=== PATIENT | male | born 1985 | race Caucasian/White ===

== ENCOUNTER 2023-07-04 20:02 | Inpatient (IN) ==
--- OUTSIDE RECORDS SUMMARY | 2023-07-04 20:09 | External Medical Summary | Continuity of Care Document ---
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 All questions were answered to the patient s satisfaction. A timeout process was then performed, during which the patient s name, date, and surgical site were confirmed. The surgical site was prepped with alcohol and anesthetized using0.2 mL of lidocainewithepinephrine. The lesion was then removed via tangential shave at the base using aDermabladeand sent for pathology. Hemostasis was achieved with aluminum chloride. The patient was educated on wound healing and scar formation and counseled on proper wound care and signs of infection. The patient left the clinic ingood condition.Advised we will contact him with a phone call or a letter. If he doesn't hear from us in 2 weeks please call the office for results. Pictures in chart. 3.Heliotrope eyelid rash Possible, faint, on upper eyelids for a few months. He is following with neurology for this at this time. 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 After discussing with Dr. Lyles, we will order DEBORAH profile and recommend he follow up with rheum as well. Advised patient to call with any problems, questions, or concerns. States understanding. Patient was seen independently,Dr Alanis for immediate collaboration as needed during this visit. Immunizations Given and Recorded Vaccine Date Status Refusal Reason influenza virus vaccine, inactivated 04/22/23 Give n influenza virus vaccine, inactivated 03/16/21 Fran rded influenza virus vaccine, inactivated 04/24/20 Fran rded influenza virus vaccine, inactivated 05/10/19 Fran rded influenza virus vaccine, inactivated 07/05/14 Fran rded influenza virus vaccine, inactivated 05/22/10 Fran rded tetanus/diphtheria/pertuss, acel (Tdap) 05/22/21 G iven SARS-CoV-2 (COVID-19) mRNA-1273 vaccine 1 09/28/20 Recorded SARS-CoV-2 (COVID-19) mRNA-1273 vaccine 2 08/29/20 Recorded SARS-CoV-2 (COVID-19) mRNA-1273 vaccine 3 08/14/20 Recorded 1Result Comment: 2021-04-18: Historical information-source unspecified 2Result Comment: 2021-04-18: Historical information-source unspecified 3Result Comment: 2021-04-18: Historical information-source unspecified Medications amphetamine-dextroamphetamine 20 mg oral tablet Start: 04/22/23 11:58:00 EST, 1 tab, PO, bid, Disp# 60 tab, Refills: 0, Pharmacy: [email or web address] Start Date: 04/22/23 Stop Date: 05/22/23 Status: Ordered Ativan 0.5 mg oral tablet Start: 07/03/23 17:23:00 EST, 1 tab, PO, q8h, Disp# 9 tab, X 3 day, use sparingly, PRN: as needed for anxiety, Stop: 07/06/23 17:23:00 EST, [facility] Start Date: 07/03/23 Stop Date: 07/06/23 Status: Ordered ibuprofen 100 mg oral tablet Start: 11/08/22 13:03:00 EDT, 2 tab, PO, q6h, PRN: as needed for headache Start Date: 11/08/22 Status: Ordered ipratropium 21 mcg/inh (0.03%) nasal spray Start: 04/22/23 11:28:00 EST, 2 spray, each nostril, tid, Disp# 1 each, Refills: 2, PRN: as needed for allergy symptoms, [facility] Start Date: 04/22/23 Stop Date: 07/21/23 Status: Ordered propranolol Start: 06/25/23 10:51:00 EST, 10 mg =, PO, Daily, 3 tabspo daily pRN anxiety Start Date: 06/25/23 Status: Ordered Tylenol Start: 06/25/23 10:47:00 EST, PO, PRN Start Date: 06/25/23 Status: Ordered Vitamin B Complex Start: 06/25/23 10:47:00 EST, PO, Daily Start Date: 06/25/23 Status: Ordered Mental Status 07/01/23 Barriers to Learning one year None evide nt Mandatory Health Literacy Documentation Yes Health Literacy Communication Barriers N ever Primary Language Danish Problem List Condition Confirmation Course Effective Dates Status H ealth Status Informant Anxiety Confirmed Active Weakness Confirmed Active ADHD (attention deficit hyperactivity disorder) Confirmed Active Carpal tunnel syndrome Confirmed Active Heliotrope eyelid rash Confirmed Active Facial rash Confirmed Active Fibromyalgia Confirmed Active History of avascular necrosis of capital femoral epiphysis Confirmed Active Wart on thumb Confirmed Active Bilateral hip pain Confirmed Active Left hip pain Confirmed Active Dermatitis, seborrheic Confirmed Active Diagnosis Diagnosis Type Effective Dates Health Status Clinical Service Informant Wart on thumb Discharge Diagnosis 07/01/23 Orlando-Danlos disease Discharge Diagnosis 07/01/23 Heliotrope eyelid rash Discharge Diagnosis 07/01/23 Procedures Procedure Date Related Diagnosis Body Site Status Shave biopsy of skin 07/01/23 Comp leted Chest x-ray 1 05/27/23 Completed Transposition of ulnar nerve at elbow 2 11/2022 Completed MRI of cervical spine 3 03/06/22 C ompleted MRI of head 4 03/06/22 Completed Plain X-ray of right first toe 5 02/07/22 Completed Chest x-ray 6 09/03/21 Completed Doppler ultrasound of kidney 7 04/01/21 Completed Plain X-ray of lumbar spine 8 04/01/21 Completed X-ray of thoracic spine 9 04/01/21 Completed KUB X-ray 10 03/30/21 Completed Diagnostic colonoscopy 11 03/27/21 Completed Upper GI (gastrointestinal) endoscopy 12, 13 03/27/[address] of abdomen and pelvis wit h contrast 14 02/27/[address] of cervical spine 15 02/27/21 C ompleted Ultrasound 16 02/01/21 Completed X-ray of left knee 17 08/15/20 Com pleted Hip arthroplasty 18 04/16/20 Compl eted MRI of wrist 19 03/16/20 Completed X-ray of fingers 20 02/08/20 Compl eted MRI of Left Hip w/o contrast. 21 12/15/19 Completed MRI of spine 22 12/15/19 Completed Stress echocardiography usin g dobutamine 23 10/12/19 Completed Chest x-ray 24 10/15/18 Completed Left hip 2012 Completed Orif of femoral neck FX 06/10/09 C ompleted Wrist [address] [place] [address] Impression: 1. No acute cardiopulmonary findings 2right 3Impression: 1. No abnormal cord signal changes or enhancement 2. No central canal or neural foraminal stenosis. 4Impresssion: No definite abnormal periventricular white-matter lesion identified to suggest demyelinating disease. Unremarable MRI brain exam. 5impressure: Fracture at the base of the first proximal phalanx as above see scanned report 6No acute process. 7Unremarkable renal ultrasound. No hydronephrosis 8No acute lumbar spine fracture or subluxation 9No acute thoracic spine fracture or subluxation 10Moderate colonic fecal retention 11Preparation of the colon was fair The entire examined colon is normal. Biopsied Non-bleeding internal hemorrhoids 12Normal esophagus Gastritis. Biopsied. Flattened mucosa was found in the duodenum, suspicious for celiac disease. Biopsied 13A. Duodenum, biopsy: No diagnostic abnormality B. Stomach, biopsy: Reactive gastropathy C. Colon, right, biopsy: No diagnostic abnormality D. Colon, left, biopsy: No diagnostic abnormality 14No acute traumatic findings within the abdomen or pelvis 151. No acute cervical spine fracture or subluxation 2. Mild T1 wedge deformity may be developmental or represent an age- indeterminate fracture 16impression: no sonographic abnormalities on this study. 17Unremarkable left knee radiographs 18Left 19Impression: 1. full thickeness tear of the thumb CMC joint capsule along its radial aspect, likely including the dorsal radial ligament. 2. No scaphoid fracture. 20Impression: No acute osseois abnormality to the Right thumb. 21Impression: 1. severe osteoarthrisis of the left hip, with a probable compnenet of underlying avascular necrosis as well as findings of prior surgical instrumentation. 2. Degenerative tearing of the left acetabular labrum. 3. Asymmetric fatty atrophy of the inferomedial left gluteus yolis muscle. This could be postoperative, posttraumatic or related to chronic denervation. 22Impression: 1. transitional lumbar spine anatomy. 4 [id number] lumbar type vertebral bodies are again noted and corrobrated counting down from c2 on localizer sequence. 12 rib-bearing thoracic type vertebral bodies were present on 2014 thoracic spine x-ray. Lumbosacral transitional vertebra desig nated as L5 for this study. L5 sacralization, with fully formed L5-S1 disc and right L5 transverse process widening. 2. Nerve root contact at L2-L3, L3-L4, and L4-L5, correlation with dermatomal symptom level recommended. 3. Multilevel mild neural foraminal narrowing. 4. No lumbar spinal canal stenosis. 5. Convex right thoracolumbar scoliosis, measuring 10 degrees by Corona method between superior T5 and inferior L4 endplates. Convex left cervicothoracic curvature/scoliosis, imcompletetly evlauated onlocalizer seqences. Weightbearing scoliosis x-ray could further assess. 6. L1 vertebral body height loss, stable dating back to december 2015. 23The stress echo is negative for inducible ischemia The examination is adequate to evaluate the referred indication The qualitative LV ejection fraction is 60-64% (normal) The left ventricular wall motion is normal The left ventricular ejection fraction increases normally with stress The right ventricular systolic function is qualitatively normal The left atrium is normal sized The right atrial size is normal No significant valvular disease is present 24No acute cardiopulmonary findings 2012 Results Laboratory List Name Date DEBORAH with Reflex titer (DEBORAH W REFLEX TITE R) 07/01/23 Most recent to oldest [Reference Range]: 1 DEBORAH, by IFA [L80N] POSITIVE *Abnormal* (07/01/23 12:47 PM) DEBORAH Titer/Pattern (1) 1:160 Speckled *Unknown* (07/01/23 12:47 PM) Social History Social History Type Response Smoking Status Never smoked cigaret gertrude Sex Male 1Vapes nicotine, but doesn't smoke cigarettes Dermatology Outpatient Note * MD Rafal, Jasmin Davis: MODIFY MD Lyles Sara B: MODIFY, MODIFY Event Display: Dermatology Outpt Note Authored Date: Chief Complaint itching on hands. History of Present Illness 38 year old white male. right thumb lesion. seems to get bigger and smaller for the past year. has had other ones on hands come and go also. Would really like to know what it is. They can bleed a lotif cut or scratched. Violaceous upper eyelids for several months. Saw Dr Mcclure 05/19/2023 and his note stated He is having some muscle weakness but work-up by neurology and rheumatology in the past have not shown any specific diagnosis. EMGs have been normal. He is outside during the summertime but reports no sun sensitivity. He is concerned about autoimmune disease. [1] He is seeing Neurology at this time. 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 Physical Exam Well developed, well nourished male. No acute distress. Right thumb 0.5cm pink papule Has a few small other pink verrucoid lesions on fingers. Faint violaceous upper eyelids. Assessment/Plan 1.Wart on thumb Shave biopsy:After thorough discussion of the risks, benefits, and alternatives to the procedure,verbal consent was obtained. All questions were answered to the patients satisfaction. A timeoutprocess was then performed, during which the patients name, date, and surgical site were confirmed. The surgical site was prepped with alcohol and anesthetized using0.2 mL of lidocainewithepinephrine. The lesion was then removed via tangential shave at the base using aDermabladeand sent for pathology. Hemostasis was achieved with aluminum chloride. The patient waseducated on wound healing and scar formation and counseled on proper wound care and signs of infection. The patient left the clinic ingood condition.Advised we will contact him with a phone call or a letter. If he doesn't hear from us in 2 weeks please call the office for results. Pictures in chart. 3.Heliotrope eyelid rash Possible, faint, on upper eyelids for a few months. He is following with neurology for this at this time. 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 After discussing with Dr. Lyles, we will order DEBORAH profile and recommend he follow up with rheum as well. Advised patient to call with any problems, questions, or concerns. States understanding. Patient was seenindependently,Dr Burtilapete for immediate collaboration as needed during this visit. Problem List/Past Medical History Ongoing ADHD (attention deficit hyperactivity disorder) Anxiety Bilateral hip pain Carpal tunnel syndrome Dermatitis, seborrheic Facial rash Fibromyalgia Heliotrope eyelid rash History of avascular necrosis of capital femoral epiphysis Left hip pain Wart on thumb Weakness Historical Delusions of parasitosis Orlando-Danlos disease Femoral neck fracture Procedure/Surgical History Chest x-ray (05/27/2023)Transposition of ulnar nerve at elbow (11/2022)MRI of cervical spine (03/06/2022)MRI of head (03/06/2022)Plain X-ray of right first toe (02/07/2022)Chest x-ray (09/03/2021)X-ray of thoracic spine (04/01/2021)Doppler ultrasound of kidney (04/01/2021)Plain X-ray of lumbar spine (04/01/2021)KUB X-ray (03/30/2021)Upper GI (gastrointestinal) endoscopy (03/27/2021)Diagnostic colonoscopy (03/27/2021)CT of abdomen and pelvis with contrast (0 02/27/2021)CT of cervical spine (02/27/2021)Ultrasound (02/01/2021)X-ray of left knee (08/15/2020)Hip arthroplasty (04/16/2020)MRI of wrist (03/16/2020)X-ray of fingers (02/08/2020)MRI of spine (12/15/2019)MRI of Left Hip w/o contrast. (12/15/2019)Stress echocardiography using dobutamine (10/12/2019)Chest x-ray (10/15/2018)Left hip (2012)Orif of femoral neck FX (06/10/2009)Wrist Medications acetaminophen(Tylenol), PO amphetamine-dextroamphetamine(amphetamine-dextroamphetamine 20 mg oral tablet), 20 mg= 1 tab, PO, bid ibuprofen(ibuprofen 100 mg oral tablet), 200 mg= 2 tab, PO, q6h, PRN ipratropium nasal(ipratropium 21 mcg/inh (0.03%) nasal spray), 2 spray, each nostril, tid, PRN, 2 refills multivitamin(Vitamin B Complex), PO, Daily propranolol, 10 mg, PO, Daily Allergies Cymbaltableeding codeineItching Social History Smoking Status Never smoked cigarettes Alcohol Use:Current Type:Beer Frequency:1-2 times per month 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 No tattoos and has not been incarcerated. Has had negativeHIV and hepatitis C screening in the past. Sexual Sexually active:Yes Current partners:1 Self described orientation:Straight or heterosexual Uses condoms:Yes Substance Abuse - Denies Substance Abuse Tobacco Use:Never smoker - Comments: Vapes nicotine, but doesn't smoke cigarettes Family History Amyloidosis: PGF. Bladder cancer: Father. Bronchiectasis: PGF. Diabetes mellitus: Father and PGM. Heart disease: Father. Parkinson disease: MGM. Renal failure syndrome: PGF. Type II diabetes mellitus: Father. Health Status Family Member(s) Immunizations Vaccine Date Status influenza virus vaccine, inactivated 04/22/2023 Given tetanus/diphtheria/pertuss, acel (Tdap) 05/22/2021 Given influenza virus vaccine, inactivated 03/2021 Recorded SARS-CoV-2 (COVID-19) mRNA-1273 vaccine 09/28/2020 Recorded Comments : 2021-04-18: Historical information-source unspecified SARS-CoV-2 (COVID-19) mRNA-1273 vaccine 08/29/2020 Recorded Comments : 2021-04-18: Historical information-source unspecified SARS-CoV-2 (COVID-19) mRNA-1273 vaccine 08/14/2020 Recorded Comments : 2021-04-18: Historical information-source unspecified influenza virus vaccine, inactivated 04/24/2020 Recorded influenza virus vaccine, inactivated 05/10/2019 Recorded influenza virus vaccine, inactivated 07/05/2014 Recorded influenza virus vaccine, inactivated 05/22/2010 Recorded Recommendations Health Maintenance Pending(in the next year) Due Adult COVID-19 Vaccination due07/01/23Unknown Frequency Adult Social Determinants of Health Screening due07/01/23Unknown Frequency Due In Future Adult Influenza Vaccine not due until12/14/23and every 1year Body Mass Index not due until06/25/24and every 366day Satisfied(in the past 1 year) Satisfied Adult Influenza Vaccine on04/22/23.Satisfied by MIGUEL Mg, Jamey Guillermo 2023-07-01 09:55:01 2023-07-01 09:55:07 [1].Outpt Note; MD Kami, Po Bermudez 05/19/2023 13:24 EST Electronic Signature on File Electronically Reviewed/Signed by: Janel Davenport PA-C Author Signature Dt/Tm:07/01/2023 10:10 AM Department of Dermatology Electronically Reviewed/Signed by: Jasmin Lyles MD Cosigner Signature Dt/Tm: 07/01/2023 11:04 AM Department of Dermatology [facility] Patient Care team information Care Team Personnel Name: DO Starr Vinay Position: Resident Member Role: Primary Care Provider Address: Address: [address] [place] [address] [place] Care Team Related Persons Name: DEELMIRA JOHN Name: CAROL JOHN Address: home No Address Provided [place]
--- NOTE | 2023-07-04 20:58 | Emergency Department Note ---
Impression & Plan Weakness, Tachycardia, Chest pain ED Provider Note NAME: DALY JOHN AGE: 38 SEX: M : 1985 ARRIVES VIA: Walk-In INFORMANT: Patient, ED PROVIDER(S): Jose G Berrios MD CHIEF COMPLAINT: Weakness, fatigue MEDICAL DECISION MAKING: Patient's blood work shows a white count of 11 with a normal H&H and platelet count. Kidney function is unremarkable with normal electrolytes with exception of mild hyponatremia at 135. Patient 130 nonfasting and not DKA. Urinalysis negative. The patient did drink a full gallon of tea here. Patient was complaining of chest pains the patient did have EKGs completed along with a troponin. The patient's heart rate is waxed and waned anywhere from the 70s to 150s. Patient's troponin is negative. 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 Per review of literature dermatomyositis combined with polymyositis could cause muscle weakness and fatigue. Given this concern and the fact the patient feels as though he cannot get up and out of bed to ambulate very well do not think it unreasonable for hospitalist admission and further discussion and treatment. I did speak to the on-call hospital service Dr. Rg and the patient was admitted to the medicine service. Chest x-ray and CT head negative. Discussion w/ other healthcare providers: None Prior /Outside records reviewed: I reviewed a rheumatology note from [facility] from September 21, 2021 the Patient Was Seen Due To Concern for Musculoskeletal Pain. Patient Reported Been Seen at That Time Due To Concern for Myalgias Radicular Symptoms and Paresthesias. Per Review of This Notes Was Discussed the Patient's Evaluation Does Not Suggest an Active Systemic Inflammatory Arthropathy or Myopathy or Autoimmune Disease. Patient Has Negative DEBORAH Profile Rheumatoid Factor Less Than 10 of 1422 HCV Negative. Was Reported the Patient Has Multiple Features of Fibromyalgia Disorder. Differential diagnosis: Infection, dehydration, metabolic abnormality, hypo/hyperglycemia, electrolyte imbalance, anemia, UTI, pneumonia, thyroid dysfunction among others were considered. Diagnostics, as interpreted by me: ECG: Sinus rhythm, rate of 67, normal intervals, normal axis significant motion artifact noted. Repeat EKG interpreted myself Normal sinus rhythm, rate of 78, normal intervals, normal axis II inversions anteriorly. Cardiac monitoring: An order was placed for continuous cardiac monitoring. The monitor shows a rate of 132 with tachycardic and regular rhythm. Patient was placed on pulse oximetry Medical decision rules: None Imaging studies: I informally interpreted the patient's CT head which does not show obvious ICH with formal report to follow. I informally interpreted the patient's chest x-ray which does not show obvious pneumonia or pneumothorax with formal report to follow. HPI: Patient presents due to concern for weakness and fatigue. The patient states that he has suffered from this for the last several years but states that it seems to be worse in the last week. Patient denies any shortness of breath. Patient denies any trauma but states that he feels as though he cannot ambulate very well and since that he has weakness in his legs and arms. Patient states that he was in a positive at a prior time but unsure as to what he was positive for with regard to any sort of autoimmune disease. Patient denies any history of Lyme's or recent tick bites. No recent travel. Patient denies any prior history of stroke mini stroke procedure. Patient believes that has been getting enough to eat and drink. Patient states that he feels as though his weakness was from the knee down and from the elbow down bilaterally but now seems to be more proximal. PAST MEDICAL HISTORY: See Below PAST SURGICAL HISTORY: See Below SOCIAL HISTORY: See Below HOME MEDICATIONS: See Below ALLERGIES: See Below VITALS: See Below PHYSICAL EXAMINATION: GENERAL: NAD, non-toxic. EYE EXAM: Normal conjunctiva. PERRL, no anisocoria and EOM's grossly intact w/o pain. OROPHARYNX: Moist mucus membranes, grossly normal dentition. NECK: Supple, no nuchal rigidity, no adenopathy, non-tender. No signs of meningismus. FROM of the neck with good chin to chest and neck extension. No stridor. LUNGS: Clear to auscultation. Normal chest wall mechanics. HEART: NSR, no MRG. ABDOMEN: Abdomen soft, non-tender, no masses, no rebound or guarding. BACK: No CVA TTP. SKIN: No rashes and no bruising. UPPER EXTREMITIES: Upper extremities are grossly normal. LOWER EXTREMITIES: Grossly normal, no edema. NEURO EXAM: A&O x3, cranial nerves II-XII grossly intact, normal speech, moves all 4 extremities. No sensory deficits Past Med/Surg History Medical History Fibromyalgia Depression Medical cannabis use Degenerative disc disease Chronic back pain AVN of femur hx s/p a skiing accident ADHD Femur fracture hx Surgical History History of surgery femoral neck wrist S/P debridement left wrist S/P total left hip arthroplasty S/P hardware removal Left hip History of hip surgery ORIF left hip Family History Grandmother (Maternal) Sjogrens syndrome Grandfather (Maternal) Amyloid disease Father Dyslipidemia Bladder cancer Diabetes Heart disease Cancer bladder cancer Adverse effect of anesthesia blind Sister Fibromyalgia Asthma Allergies Family/Other Hypertension paternal relatives Other No family history of bleeding disorder Social History Smoking Status: Never smoker Tobacco Type: E-cigarettes / Vaping Second Hand Exposure: No; Do You Dip or Chew Tobacco: No; Hx Alcohol Use: No Hx Substance Use: Yes Substance Use Type Other:: medical marijuana Preferred Language: Hungarian Communication Ability: Effective Customer Operations Associate Required: No Beliefs That Will Affect Care: None marital status: Single Current Living Situation: Alone current occupational status: employed current occupation: [employer] Other Information That Helps Us Care for You: No Feels Safe at Home: Yes Safety Concerns: Feels Safe At This Time Assistive Devices: Glasses and Walker Allergies Allergies Allergy/AdvReac Type Severity Reaction Status Date / Time Pork/Porcine Containing AdvReac Verified 07/06/23 11:25 Products shellfish derived AdvReac Verified 07/06/23 11:25 Home Meds Home Medications Medication Instructions Recorded Confirmed dextroamphetamine-amphetamine 20 20 mg PO BID PRN NEEDED PER PT. 01/27/21 07/04/23 mg tablet (Adderall) albuterol sulfate 90 mcg/actuation 2 puff inhalation Q4H PRN Wheezing 07/04/23 07/04/23 aerosol inhaler baclofen 10 mg tablet 10 mg PO TID PRN MUSCLE SPASMS 07/04/23 07/04/23 gabapentin 100 mg capsule 100 mg PO BID 07/04/23 07/04/23 lorazepam 0.5 mg tablet 0.5 mg PO Q8H PRN Anxiety 07/04/23 07/04/23 multivitamin 1 tab PO DAILY 07/04/23 07/04/23 vitamin B complex 1 tab PO DAILY 07/04/23 07/04/23 Results & Data (ED) Vital Signs Vital Signs - 24 hr 07/04/23 20:07 07/04/23 21:15 Temperature 36 C L Temperature Source Temporal Artery Scan Pulse Rate 99 H 73 Respiratory Rate 18 Respiratory Effort / Characteristics Non-Labored Respiratory Depth Normal Blood Pressure 123/86 Blood Pressure Mean 98 Pulse Oximetry 95 Oxygen Delivery Method Room Air Sepsis Recent Fever Within 48 Hours No Sepsis New/Unexplained Change in Mental Status No Sepsis Action Taken by Nursing No Action Required Home Medications Current Medication List: was personally reviewed by me Laboratory Data Attestation: I reviewed the patient's lab results. 07/06/23 07:59 07/06/23 07:59 Lab Results 07/04/23 07/04/23 07/04/23 Range/Units 21:20 21:28 23:00 WBC 11.24 H (4.8-10.8) K/ul RBC 5.22 (4.70-6.10) M/uL Hgb 15.6 (14.0-18.0) g/dl Hct 46.4 (42.0-52.0) % MCV 88.9 (80.0-100.0) fL MCH 29.9 (25.0-34.0) pg MCHC 33.6 (32.0-36.0) g/dL RDW Std Deviation 41.7 (36.4-46.3) fL RDW Coeff of Shar 12.8 (11.5-14.5) % Plt Count 363 (130-400) K/uL MPV 9.2 L (9.4-12.4) fL Immature Gran % (Auto) 0.7 % Neut % (Auto) 72.7 % Lymph % (Auto) 16.4 % [place] % (Auto) 8.4 % Eos % (Auto) 1.3 % Baso % (Auto) 0.5 % Neut # (Auto) 8.17 H (1.40-6.50) K/uL Lymph # (Auto) 1.84 (1.20-3.40) K/uL [place] # (Auto) 0.94 H (0.11-0.59) K/uL Eos # (Auto) 0.15 (0.00-0.50) K/uL Baso # (Auto) 0.06 (0.00-0.20) K/uL Immature Gran # (Auto) 0.08 (0.01-0.20) K/uL APTT 29 (21-31) Seconds PTT Ratio 1.0 Sodium 135 L (136-145) mmol/L Potassium 3.6 (3.5-5.1) mmol/L Chloride 100 (98-107) mmol/L Carbon Dioxide 27 (21-32) mmol/L Anion Gap 8 (3-11) BUN 16 (6-23) mg/dl Creatinine 1.02 (0.6-1.4) mg/dl Est Cr Clr Drug Dosing 116.4 ml/min Est GFR ( Amer) 109.1 ml/min Est GFR (Non-Af Amer) 94.1 ml/min BUN/Creatinine Ratio 15.7 (10-20) Glucose 130 H (70-99(Fasting)) mg/dl Calcium 9.2 (8.6-10.3) mg/dl Phosphorus 3.3 (2.5-4.9) mg/dl Magnesium 2.1 (1.7-2.4) mg/dl Total Bilirubin 1.1 H (0.2-1.0) mg/dl AST 15 (13-39) U/L ALT 24 (7-52) U/L Alkaline Phosphatase 81 (34-104) U/L Total Creatine Kinase 40 (30-223) U/L Total Protein 7.1 (6.0-8.3) gm/dl Albumin 4.7 (3.4-5.0) gm/dl Globulin 2.4 L (2.5-4.0) gm/dl Albumin/Globulin Ratio 2.0 (0.9-2) 25-OH Vitamin D Total 25.4 L (30-100) ng/ml Urine Color Yellow Urine Appearance Clear (Clear) Urine pH 6.5 (4.5-7.5) Ur Specific [place] 1.008 (1.000-1.030) Urine Protein Negative (Negative) Urine Glucose (UA) Negative (Negative) Urine Ketones Negative (Negative) Urine Blood Negative (Negative) Urine Nitrite Negative (Negative) Urine Bilirubin Negative (Negative) Urine Urobilinogen Negative (Negative) Ur Leukocyte Esterase Negative (Negative) Lyme Disease IgG Ab Negative (Negative) Lyme Disease IgM Ab Negative (Negative) SARS-CoV-2 (PCR) NEGATIVE (Negative) Influenza Type A (PCR) Negative (Neg) Influenza Type B (PCR) Negative (Neg) RSV (RT-PCR) Negative (Neg) Administered Medications Acetaminophen (Acetaminophen 325 Mg Tab) 650 mg PO Q4H PRN PRN Reason: pain/fever Stop: 08/04/23 03:13 Last Admin: 07/05/23 19:32 Dose: 650 mg Documented By: ENA Gabapentin (Gabapentin 100 Mg Cap) 100 mg PO BID ALYSSA Stop: 08/04/23 20:59 Last Admin: 07/06/23 07:42 Dose: 100 mg Documented By: Admin: 07/05/23 21:23 Dose: 100 mg Documented By: ENA Discontinued Medications Sodium Chloride (Nss) 1,000 mls @ 999 mls/hr IV .Q1H1M ONE Stop: 07/04/23 22:25 Last Admin: 07/04/23 23:17 Dose: Not Given Documented By: SJ Sodium Chloride (Nss) 1,000 mls @ 999 mls/hr IV .Q1H1M ONE Stop: 07/05/23 01:04 Last Infusion: 07/05/23 01:24 Dose: Infused Documented By: Admin: 07/05/23 00:12 Dose: 999 mls/hr Documented By: SJ Ketorolac Tromethamine (Ketorolac Tromethamine 15 Mg/Ml Vial) 10 mg IV NOW ONE Stop: 07/05/23 00:05 Last Admin: 07/05/23 00:11 Dose: 10 mg Documented By: SJ Lorazepam (Lorazepam 1 Mg/1 Ml Syr Ed Inj Use) 1 mg IV ONE STA Stop: 07/05/23 00:06 Last Admin: 07/05/23 00:12 Dose: 1 mg Documented By: SJ Imaging Data Radiologist's Impression: Chest X-Ray 07/04/23 20:11 XR chest 1V portable HISTORY: weakness COMPARISON: Chest 05/27/2023. FINDINGS: The lungs are clear. Cardiac silhouette is normal in size. No pleural effusions. No pneumothorax. IMPRESSION: No acute process. ACT 112: Negative or not required by law. Electronically signed by: Manan Goldman M.D. 07/05/2023 8:[address] 07/04/23 21:25 Exam(s): CT HEAD Without Contrast EXAM: CT Head Without Intravenous Contrast CLINICAL HISTORY: Reason for exam: weakness, fatigue. TECHNIQUE: Axial computed tomography images of the head/brain without intravenous contrast. CTDI is 37.22 mGy and DLP is 702.46 mGy-cm. Automated exposure control was utilized for the study. A dose lowering technique was utilized adhering to the principles of ALARA. COMPARISON: No relevant prior studies available. FINDINGS: Brain: Unremarkable. No hemorrhage. No significant white matter disease. No edema. Ventricles: Unremarkable. No ventriculomegaly. Bones/joints: Unremarkable. No acute fracture. Soft tissues: Unremarkable. Sinuses: Unremarkable as visualized. No acute sinusitis. Mastoid air cells: Unremarkable as visualized. No mastoid effusion. IMPRESSION: No evidence of acute intracranial pathology. Electronically signed by: Geeta Carvajal MD 07/05/23 00:58 AM Discharge Plan Visit Data Chief Complaint: Weakness Stated Complaint: MODERATE TO SEVERE WEAKNESS, ARMS/LEGS/NECK/THROAT ED Provider: Jose G Berrios Discharge Problem: Weakness, Tachycardia, Chest pain Patient Disposition: Admitted As Inpatient Discharge Instructions Interventions: ED Discharge Assessment Last Done: 07/05/23 02:50 Discharge Problem: Chest pain Qualifiers: Chest pain type: unspecified Qualified Code(s): R07.9 - Chest pain, unspecified
[2023-07-04] MEDS ORDERED: SODIUM CHLORIDE 0.9% 1,000 ML IV ONE (21:25)
[2023-07-04 22:20] LABS: Basophils # (auto) 0.06 K/uL (0.00-0.20); Basophils % (auto) 0.5 %; Eosinophils # (auto) 0.15 K/uL (0.00-0.50); Eosinophils % (auto) 1.3 %; Hematocrit (blood only) 46.4 % (42.0-52.0); Hemoglobin 15.6 g/dl (14.0-18.0); Immature Granulocytes # (auto) 0.08 K/uL (0.01-0.20); Immature Granulocytes % (auto) 0.7 %; Lymphocytes # (auto) 1.84 K/uL (1.20-3.40); Lymphocytes % (auto) 16.4 %; Mean Corpuscular Hemoglobin 29.9 pg (25.0-34.0); Mean Corpuscular Hgb Conc 33.6 g/dL (32.0-36.0); Mean Corpuscular Volume 88.9 fL (80.0-100.0); Mean Platelet Volume 9.2 fL (9.4-12.4); Monocytes # (auto) 0.94 K/uL (0.11-0.59); Monocytes % (auto) 8.4 %; Neutrophils # (auto) 8.17 K/uL (1.40-6.50); Neutrophils % (auto) 72.7 %; Platelet Count 363 K/uL (130-400); RDW Coefficient of Variation 12.8 % (11.5-14.5); RDW Standard Deviation 41.7 fL (36.4-46.3); Red Blood Count 5.22 M/uL (4.70-6.10); White Blood Count 11.24 K/ul (4.8-10.8)
[2023-07-04 22:35] LABS: Albumin Level 4.7 gm/dl (3.4-5.0); BUN Creatinine Ratio 15.7 (10-20); Bilirubin,Total 1.1 mg/dl (0.2-1.0); Calcium 9.2 mg/dl (8.6-10.3); Creatinine Clr Calc Pharmacy 116.4 ml/min; Est GFR (African American) 109.1 ml/min; Est GFR (Non-African American) 94.1 ml/min; Globulin 2.4 gm/dl (2.5-4.0); Magnesium 2.1 mg/dl (1.7-2.4); Phosphorus 3.3 mg/dl (2.5-4.9); Potassium 3.6 mmol/L (3.5-5.1); Total Protein 7.1 gm/dl (6.0-8.3)
[2023-07-04 22:44] LABS: Partial Thromboplastin Time 29 Seconds (21-31)
[2023-07-04 22:55] LABS: Influenza A virus by PCR Negative (Neg); Influenza B virus by PCR Negative (Neg); RSV by PCR Negative (Neg); SARS CoV2 RNA(COVID-19) Ceph NEGATIVE (Negative)
[2023-07-04 22:59] LABS: Lyme Ab IgG w/WB Rflx Negative (Negative); Lyme Ab IgM w/WB Rflx Negative (Negative)
[2023-07-04 23:33] LABS: Appearance Urine Clear (Clear); Bilirubin Urine Negative (Negative); Blood Urine Negative (Negative); Color Urine Yellow; Glucose Urine UA Negative (Negative); Ketones Urine Negative (Negative); Leukocyte Esterase Urine Negative (Negative); Nitrite Urine Negative (Negative); Protein Urine Negative (Negative); Specific Gravity Urine 1.008 (1.000-1.030); Urobilinogen Urine Negative (Negative); pH Urine 6.5 (4.5-7.5)
[2023-07-05] MEDS ORDERED: KETOROLAC TROMETHAMINE 15 MG/ML VIAL IV ONE (00:04)
[2023-07-05] MEDS ORDERED: SODIUM CHLORIDE 0.9% 1,000 ML IV ONE (00:04)
[2023-07-05] MEDS ORDERED: LORazepam 1 MG/1 ML SYR ED Inj Use IV STA (00:05)
--- NOTE | 2023-07-05 00:59 | CT Scan Report ---
Exam(s): CT HEAD Without Contrast EXAM: CT Head Without Intravenous Contrast CLINICAL HISTORY: Reason for exam: weakness, fatigue. TECHNIQUE: Axial computed tomography images of the head/brain without intravenous contrast. CTDI is 37.22 mGy and DLP is 702.46 mGy-cm. Automated exposure control was utilized for the study. A dose lowering technique was utilized adhering to the principles of ALARA. COMPARISON: No relevant prior studies available. FINDINGS: Brain: Unremarkable. No hemorrhage. No significant white matter disease. No edema. Ventricles: Unremarkable. No ventriculomegaly. Bones/joints: Unremarkable. No acute fracture. Soft tissues: Unremarkable. Sinuses: Unremarkable as visualized. No acute sinusitis. Mastoid air cells: Unremarkable as visualized. No mastoid effusion. IMPRESSION: No evidence of acute intracranial pathology. Electronically signed by: Geeta Carvajal MD 07/05/23 00:58 AM
--- NOTE | 2023-07-05 01:59 | History & Physical Report ---
Date of Service July 05, 2023 Assessment & Plan (1) Weakness: Plan: -Head CT negative, chest x-ray negative. -CBC mostly benign though had a leukocytosis of 11.2. Will continue to trend while admitted. -CMP mostly benign. CK negative, troponin negative, and UA negative. -Has had extensive rheumatology workup in the past for weakness which was negative. -Saw neurology on the , extensive neurological workup remains pending. -Symptoms may be related to anxiety/depression. -Will trend CBC and BMP. -PT/OT ordered (2) Fibromyalgia: Plan: -Extensive workup done by rheumatology who states that his symptoms are most likely in line with fibromyalgia. (3) Medical cannabis use: Plan: -States that he does not use the marijuana much. (4) Swallowing difficulty: Plan: -Due to pt having swallowing issues, will order speech therapy. History of Present Illness Chief Complaint: Weakness Primary Care Provider: Jm Starr DO Patient is a 38-year-old male who comes into the hospital complaining of muscle weakness in the arms, legs, neck, and throat. States that he has been having this weakness for the past few years and has seen rheumatology as well as recently seen neurology for this issue. States that over the past week his symptoms have been getting worse. States that his legs and arms are very weak. He has also been choking on things for the past couple of days when he has not had this issue before. States that he was trying to put up a camera and he started to have trouble with lifting his arms up over his head this afternoon. He reached out to his neurologist who said to come to the ED. Patient also states that when he was trying to shower and he tried to stand on 1 leg he started to fall over. States that he has been having trouble with walking. He also states that he has been feeling nauseous but has no vomiting. Denies any chest pain, abdominal pain, or other symptoms. Allergies Allergy/AdvReac Type Severity Reaction Status Date / Time No Known Allergies Allergy Verified 07/04/23 21:55 Home Medications Medication Instructions Recorded Confirmed Type dextroamphetamine-amphetamine 20 20 mg PO BID PRN NEEDED PER PT. 01/27/21 07/04/23 History mg tablet (Adderall) albuterol sulfate 90 mcg/actuation 2 puff inhalation Q4H PRN Wheezing 07/04/23 07/04/23 History aerosol inhaler baclofen 10 mg tablet 10 mg PO TID PRN MUSCLE SPASMS 07/04/23 07/04/23 History gabapentin 100 mg capsule 100 mg PO BID 07/04/23 07/04/23 History lorazepam 0.5 mg tablet 0.5 mg PO Q8H PRN Anxiety 07/04/23 07/04/23 History multivitamin 1 tab PO DAILY 07/04/23 07/04/23 History vitamin B complex 1 tab PO DAILY 07/04/23 07/04/23 History Past Med/Surg History Medical History ADHD AVN of femur hx s/p a skiing accident Chronic back pain Degenerative disc disease Depression Femur fracture hx Fibromyalgia Medical cannabis use Surgical History History of hip surgery ORIF left hip History of surgery femoral neck wrist S/P debridement left wrist S/P hardware removal Left hip S/P total left hip arthroplasty Family History Grandmother (Maternal) Sjogrens syndrome Grandfather (Maternal) Amyloid disease Father Dyslipidemia Bladder cancer Diabetes Heart disease Cancer bladder cancer Adverse effect of anesthesia blind Sister Fibromyalgia Asthma Allergies Family/Other Hypertension paternal relatives Other No family history of bleeding disorder Social History Smoking Status: Never smoker Tobacco Type: E-cigarettes / Vaping Second Hand Exposure: No; Do You Dip or Chew Tobacco: No; Hx Alcohol Use: No Hx Substance Use: Yes Substance Use Type Other:: medical marijuana Preferred Language: Peruvian Communication Ability: Effective Dragline Operator Required: No Beliefs That Will Affect Care: None marital status: Single Current Living Situation: Alone current occupational status: employed current occupation: [employer] Other Information That Helps Us Care for You: No Feels Safe at Home: Yes Safety Concerns: Feels Safe At This Time Assistive Devices: Glasses and Walker Review of Systems Review of Systems: All systems reviewed & are unremarkable except as noted in Subjective Physical Exam Physical Exam: Constitutional: well-appearing, no acute distress HEENT: NCAT, no conjunctival injection CV: regular rhythm, no murmur appreciated, extremities well-perfused, no LE edema Resp: CTABL, no wheezes/rales/rhonchi appreciated, no increased work of breathing GI: soft, nondistended, nontender, BS normoactive MSK: no gross deformities appreciated, strength and sensation intact in the upper and lower extremities Skin: warm, dry, no rash appreciated Neuro: alert, oriented, no focal neurologic deficit appreciated Results & Data Results & Data Vital Signs (Past 12 Hours) Vital Signs Temp Pulse Resp BP Pulse Ox O2 Del Method 07/05/23 01:02 117 H 07/04/23 23:30 90 12 176/95 H 98 07/04/23 23:01 88 16 135/107 H 99 07/04/23 22:01 88 12 145/102 H 97 07/04/23 21:30 71 24 135/96 99 07/04/23 21:15 73 07/04/23 20:07 36 C L 99 H 18 123/86 95 Room Air Supervising Physician Co-Signing Physician Notes Patient seen and examined, chart reviewed, case discussed with Dr. Funes and I agree with the assessment and plan as above Resident Activity Tracking Resident Involvement: Resident Care Provided Care Provided: Adult Hospital Medicine
[2023-07-05] MEDS ORDERED: ONDANSETRON INJ 2 MG/ML 2 ML VIAL IV PRN (03:14)
[2023-07-05] MEDS ORDERED: ALBUTEROL HFA 8 GM INHALER INH PRN (03:14)
--- NOTE | 2023-07-05 07:13 | Electrocardiogram Report ---
Test Reason : Blood Pressure : / mmHG Vent. Rate : 067 BPM Atrial Rate : 068 BPM P-R Int : 158 ms QRS Dur : 086 ms QT Int : 404 ms P-R-T Axes : 079 076 077 degrees QTc Int : 426 ms Poor data quality, interpretation may be adversely affected Sinus rhythm No previous ECGs available Confirmed by Nic Gross ([id number]) on 07/05/2023 7:12:56 AM Referred By: REFERRED SELF Confirmed By:Gibran Gross
--- NOTE | 2023-07-05 07:19 | Electrocardiogram Report ---
Test Reason : Blood Pressure : / mmHG Vent. Rate : 118 BPM Atrial Rate : 118 BPM P-R Int : 112 ms QRS Dur : 086 ms QT Int : 448 ms P-R-T Axes : 052 082 073 degrees QTc Int : 627 ms Sinus tachycardia Nonspecific T wave abnormality Prolonged QT Abnormal ECG When compared with ECG of 04-JUL-2023 21:23, (unconfirmed) Vent. rate has increased BY [address] now depressed in Inferior leads Non-specific change in ST segment in Lateral leads Confirmed by Nic Gross ([id number]) on 07/05/2023 7:18:30 AM Referred By: REFERRED SELF Confirmed By:Gibran Gross
--- NOTE | 2023-07-05 08:10 | XRay Report ---
XR chest 1V portable HISTORY: weakness COMPARISON: Chest 05/27/2023. FINDINGS: The lungs are clear. Cardiac silhouette is normal in size. No pleural effusions. No pneumot horax. IMPRESSION: No acute process. ACT 112: Negative or not required by law. Electronically signed by: Manan Goldman M.D. 07/05/2023 8:08 AM
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
--- NOTE | 2023-07-05 16:10 | Electrocardiogram Report ---
Test Reason : Blood Pressure : / mmHG Vent. Rate : 078 BPM Atrial Rate : 078 BPM P-R Int : 166 ms QRS Dur : 088 ms QT Int : 400 ms P-R-T Axes : 062 062 064 degrees QTc Int : 456 ms Normal sinus rhythm with sinus arrhythmia ST elevation, consider early repolarization, pericarditis, or injury T wave abnormality, consider anterior ischemia Abnormal ECG Confirmed by Nic Gross ([id number]) on 07/05/2023 4:09:46 PM Referred By: REFERRED SELF Confirmed By:Gibran Gross
[2023-07-05] MEDS: ACETAMINOPHEN 325 MG TAB PO PRN (19:32)
[2023-07-05] MEDS: GABAPENTIN 100 MG CAP PO SCH (21:23)
--- NOTE | 2023-07-05 22:32 | Billing Data ---
Date of Service July 05, 2023 Coding Level of Care Code 24336 INT INP/OBS CARE
[2023-07-06] MEDS: GABAPENTIN 100 MG CAP PO SCH ×2 (07:42→19:29)
[2023-07-06 08:19] LABS: Basophils # (auto) 0.07 K/uL (0.00-0.20); Basophils % (auto) 0.8 %; Eosinophils # (auto) 0.18 K/uL (0.00-0.50); Hematocrit (blood only) 45.3 % (42.0-52.0); Hemoglobin 15.8 g/dl (14.0-18.0); Immature Granulocytes # (auto) 0.03 K/uL (0.01-0.20); Immature Granulocytes % (auto) 0.3 %; Lymphocytes # (auto) 1.79 K/uL (1.20-3.40); Lymphocytes % (auto) 19.6 %; Mean Corpuscular Hgb Conc 34.9 g/dL (32.0-36.0); Mean Platelet Volume 8.9 fL (9.4-12.4); Monocytes # (auto) 0.92 K/uL (0.11-0.59); Monocytes % (auto) 10.1 %; Neutrophils # (auto) 6.15 K/uL (1.40-6.50); Neutrophils % (auto) 67.2 %; Platelet Count 317 K/uL (130-400); RDW Coefficient of Variation 12.9 % (11.5-14.5); RDW Standard Deviation 39.8 fL (36.4-46.3); Red Blood Count 5.27 M/uL (4.70-6.10); White Blood Count 9.14 K/ul (4.8-10.8)
[2023-07-06 08:34] LABS: BUN Creatinine Ratio 7.7 (10-20); Calcium 9.5 mg/dl (8.6-10.3); Creatinine Clr Calc Pharmacy 130.5 ml/min; Est GFR (African American) 125.2 ml/min; Magnesium 2.2 mg/dl (1.7-2.4); Potassium 3.4 mmol/L (3.5-5.1)
--- NOTE | 2023-07-06 16:49 | Hospitalist Progress Note ---
Date of Service July 06, 2023 Assessment & Plan (1) Weakness: Plan: -Head CT negative, chest x-ray negative. -Inpatient workup includes, negative: CK, troponin, UA, LDH (ordered on pt request), quad screen, lyme -Has had extensive rheumatology workup in the past for weakness which was negative, but with recent positive DEBORAH -Saw [facility] neurology on the , extensive neurological workup remains pending. - Able to review some of the studies on his phone from patient portal: - Vit B1: 138 - Vit B12: 443 - DEBORAH: positive, 1:160 - Obtained neurology note: 06/25 was his first visit with [facility] neurology. Notes a hx of Orlando Villegas. -Symptoms may be related to anxiety/depression - Reports sleeping most of the day and unintentional 53# weight loss over the last year - patient denies suicidal thoughts and states he is not depressed Vit D 25.4 - start PO supplementation Morning cortisol 9 Patient reports recent negative brain and C-spine MRI --> no records to review at present - Reports done at [facility] will attempt to obtain tomorrow when they are open -PT/OT ordered - OT recommend discharge to home to stay with parents. Walker for decrease risk of falls - PT recommends discharge to home with parents or use a walker and elevator at current apartment Will order CMV, [place], paraneoplastic panel to continue workup. Plan to consult neurology in the [facility]. (2) Fibromyalgia: Plan: Was dx previously by Rheumatology, patient does not feel like this is a real or accurate diagnosis - Trialed duloxetine previously and stopped d/t side effects (3) Slipping rib syndrome: Plan: Patient reports that he is supposed to have surgery for this 07/15 at [facility] - Reports taking gabapentin 100mg BID in preparation for surgery (4) Medical cannabis use: Plan: Previously reported that he did not use the marijuana much - reported that he used frequently to try to stimulate his appetite without success (5) Swallowing difficulty: Plan: Patient reported - Evaluated by PROFILER --> no acute concerns, passed swallow study (6) ADHD: Plan: Patient reports not taking Adderall frequently because he does not like how it makes him feel Plan Dispo: continued inpatient stay, Dr. Tate will be assuming care of this patient starting tomorrow Admission and Anticipated Discharge Date Admission Date: July 05, 2023 Subjective Patient seen resting in bed. Reports symptoms unchanged from yesterday. Still feels weak. Reports appetite is not improved but I did witness half of his lunch tray being eaten. Questioning bruising on his thighs that he reports started this morning but has episodes before in a weird pattern. Also reports enlarged cervical lymph node that appeared since last night. He denies fevers or chills. Review of Systems Review of Systems: All systems reviewed & are unremarkable except as noted in Subjective Physical Exam Physical Exam: General: NAD, VS as above HEENT: one palpable lymph node right anterior cervical chain. no supraclavicular LNs. MMM Resp: normal respiratory effort, lungs clear to auscultation CV: RRR, no murmur, Extremities: Moves all extremities- . Able to reposition himself in bed indepen dently. LE- no edema. Patient illicits pain to calf muscle with deep/aggressive palpation. Neuro: A&O x3, Skin: intact, possible faint yellow discoloration on bilateral thighs where patient is concerned about bruising. macular rash behind left ear, pt is asymptomatic. Results & Data Results & Data Vital Signs (Past 12 Hours) Vital Signs Temp Pulse Resp BP Pulse Ox O2 Del Method 07/06/23 14:16 36.9 C 69 16 134/79 97 Room Air 07/06/23 08:00 Room Air 07/06/23 07:08 36.9 C 92 H 16 140/87 98 Room Air Laboratory Results CBC, chemistry, cortisol reviewed PG Care Time/CCT Total # of Minutes Spent Total Time Spent with Patient: Total time spent is greater than 50% in coordination of care (as documented) at patient's floor/unit and/or counseling patient: Coding Level of Care Code 54376 SUB INP/OBS CARE 2/35MIN Diagnoses Weakness R53.1 Fibromyalgia M79.7 Slipping rib syndrome M94.0 Medical cannabis use Z79.899 Swallowing difficulty R13.10 ADHD F90.9
[2023-07-06] MEDS: ACETAMINOPHEN 325 MG TAB PO PRN (19:29)
--- NOTE | 2023-07-06 20:44 | Ultrasound Report ---
Exam(s): US VENOUS BILATERAL LOWER EXTREMITIES EXAM: US Duplex Bilateral Lower Extremities Veins CLINICAL HISTORY: Reason for exam: bilateral calf pain, sedentary lifestyle. TECHNIQUE: Real-time duplex ultrasound scan of the bilateral lower extremity veins integrating B-mode two-dimensional vascular structure, Doppler spectral analysis, color flow Doppler imaging and compression. COMPARISON: No relevant prior studies available. FINDINGS: Right deep veins: Unremarkable. No DVT in the right lower extremity. Right superficial veins: Unremarkable. No thrombus in the visualized right great saphenous vein. Left deep veins: Unremarkable. No DVT in the left common femoral, femoral, proximal deep femoral or popliteal veins. The veins demonstrate normal color flow, are normally compressible, with normal phasic flow and/or augmentation response. Left superficial veins: Left large saphenous vein is partially compressible with thick-walled likely representing chronic nonocclusive thrombus within same. Soft tissues: No acute findings. No popliteal cyst. IMPRESSION: 1. No DVT 2. Chronic nonocclusive thrombus within the left large saphenous vein Electronically signed by: Wale Zazueta MD 07/06/23 20:42 PM
[2023-07-07 06:09] LABS: Basophils # (auto) 0.08 K/uL (0.00-0.20); Basophils % (auto) 0.9 %; Eosinophils % (auto) 2.2 %; Hematocrit (blood only) 44.6 % (42.0-52.0); Hemoglobin 15.9 g/dl (14.0-18.0); Immature Granulocytes # (auto) 0.02 K/uL (0.01-0.20); Immature Granulocytes % (auto) 0.2 %; Lymphocytes # (auto) 2.26 K/uL (1.20-3.40); Lymphocytes % (auto) 24.9 %; Mean Corpuscular Hemoglobin 30.4 pg (25.0-34.0); Mean Corpuscular Hgb Conc 35.7 g/dL (32.0-36.0); Mean Corpuscular Volume 85.3 fL (80.0-100.0); Monocytes # (auto) 0.86 K/uL (0.11-0.59); Monocytes % (auto) 9.5 %; Neutrophils # (auto) 5.65 K/uL (1.40-6.50); Neutrophils % (auto) 62.3 %; Platelet Count 322 K/uL (130-400); RDW Coefficient of Variation 13.1 % (11.5-14.5); RDW Standard Deviation 39.8 fL (36.4-46.3); Red Blood Count 5.23 M/uL (4.70-6.10); White Blood Count 9.07 K/ul (4.8-10.8)
[2023-07-07 06:16] LABS: Albumin Globulin Ratio 1.8 (0.9-2); Albumin Level 4.6 gm/dl (3.4-5.0); BUN Creatinine Ratio 7.9 (10-20); Bilirubin,Total 1.3 mg/dl (0.2-1.0); Calcium 9.5 mg/dl (8.6-10.3); Creatinine Clr Calc Pharmacy 133.4 ml/min; Est GFR (African American) 127.5 ml/min; Globulin 2.5 gm/dl (2.5-4.0); Potassium 3.9 mmol/L (3.5-5.1); Total Protein 7.1 gm/dl (6.0-8.3)
[2023-07-07] MEDS: CHOLECALCIFEROL 5,000 UNITS 125 MCG TAB PO SCH (08:14)
[2023-07-07] MEDS: GABAPENTIN 100 MG CAP PO SCH ×2 (08:14→20:26)
[2023-07-07] MEDS: ACETAMINOPHEN 325 MG TAB PO PRN ×2 (08:17→15:55)
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
[2023-07-07] MEDS ORDERED: LORazepam 0.5 MG TAB PO PRN (10:47)
[2023-07-07 11:20] LABS: Thyroid Stimulating Hormone 0.998 uIu/ml (0.300-4.500)
[2023-07-07 11:22] LABS: T4 Free Thyroxine 1.13 ng/dl (0.61-1.60)
[2023-07-07] MEDS ORDERED: ACETAMINOPHEN 500 MG TAB PO PRN (17:39)
--- NOTE | 2023-07-07 17:39 | Hospitalist Progress Note ---
Date of Service July 07, 2023 Assessment & Plan (1) Myalgia: Plan: Pt reports generalized weakness, myalgia/pain in his muscles but particularly the thighs, as well as a host of other symptoms. EXTENSIVE work-up has been pursued in the past by various providers. There is a note from [facility] from 09/21/2021 summarizing his chronic complaints. This note is scanned into the record. Recent work-up -- * 06/25/23 - saw [facility], MRI brain/c-spine advised; myositis w/u advised; amyloidosis w/u advised - their note states they gave him an [employer]it[employer] buccal swab to rule this out; also advised neuropathy panel to evaluate for TTR gene; there are numerous labs pending from that visit -- need to f/u on all of that (I believe there are myasthenia gravis labs pending from that visit as well) * saw [facility] - he mentioned the ?heliotropic rash on eyelids - DEBORAH panel sent which prelim was positive as below Labs pending here - * total testosterone * paraneoplastic panel (send due to c/o 50+ pounds of weight loss) * DEBORAH-12 * EBV/CMV titers For pain/myalgia - toradol prn, tylenol prn (2) Weakness: Plan: See above and below for further discussion He reports weakness and b/l foot drop but the latter is not seen on exam He has no evidence of clinical myopathy or prox muscle weakness on exam PT/OT evals - - OT recommend discharge to home to stay with parents and a walker to decrease risk of falls - PT recommends discharge to home with parents, or use a walker and elevator at current apartment Appreciate neuro consult by Dr Ritter Appreciate upcoming rheum consult by Dr Ling (3) Positive DEBORAH (antinuclear antibody): Plan: Has been positive in the past, and recent DEBORAH thru the [facility] system on 07/01/23 was also positive. titer - 1:160, speckled pattern additional labs sent by [facility] on 06/25/23 - pyridoxal 5 phosphate level (Vit B6) - 42.6 (normal); vitamin B1 level 138; vitamin B12 443 "musk ab" - also sent on 06/25/23 - not sure what this lab encompasses will need to f/u on the above pending labs of note - DEBORAH-12 sent from [facility] and is pending I spoke directly with Dr Quincy Ling from [facility] - extensive sign out given to Dr Ling - he will see Mr Finley on 07/08/23 (4) Fibromyalgia: Plan: Was dx previously by Rheumatology in 2021 patient disagrees with this diagnosis Trialed duloxetine previously and stopped the med due to side effects TSH, FT4 wnl Cortisol level wnl CPK wnl Sed rate <10 CRP 0 Lyme negative Monospot negative; EBV/CMV titers pending DEBORAH+ as above (5) Slipping rib syndrome: Plan: Patient reports that he is supposed to have surgery for this 07/15/23 at [facility] in [place] Surgery will be on right side He showed me a gabapentin titration schedule as recommended by GLADYS Gallardo, from [place] -- * 3 weeks prior to surgery - gabapentin 100mg BID * 2 weeks prior to surgery - gabapentin 200mg BID * 1 week prior to surgery - gabapentin 300mg BID * 2 days before surgery - gabapentin 600mg BID his dose was increased to 200mg BID while here (6) Medical cannabis use: Plan: noted (7) Swallowing difficulty: Plan: Patient reported Evaluated by speech therapy --> no acute concerns, passed swallow study (8) ADHD: Plan: Patient reports not taking Adderall frequently Could consider wellbutrin as adjunct (9) Chronic superficial venous thrombosis of left lower extremity: Plan: greater saphenous vein on left chronic in appearance non-occlusive risk factor for such -- 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 left hip in the past as well no acute Rx needed given chronicity should always be on chemical DVT proph while hospitalized, eliecer-operatively, etc this was discussed in detail with patient today fortunately no DVT seen in either leg if he becomes symptomatic from this chronic clot and he wishes for evaluation can f/u with Dr Cullen Esquivel with cardiology/vascular for venous study as outpatient (10) Tobacco use: Plan: start nicoderm patch 14mg/24 hours (11) Vitamin D insufficiency: Plan: level - 25 doubt contributing to his overall symptoms cont vit D 5000 IU daily (12) DVT prophylaxis: Plan: add lovenox 40mg daily (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 and who made this diagnosis (14) Weight loss: Plan: he reports 50 pounds of weight loss but his documented weight from this admission is similar to his weight from several years ago (87kg in 2020, 85kg this admission) albumin is 4.6 vitamin B1, B6, B12 all wnl TSH / FT4 wnl cortisol wnl Plan very complex care coordination discussed care extensively with neurology & rheumatology discussed care with nursing reviewed multiple outside records reviewed old records extensively discussed his superficial, chronic LLE thrombus informally with vascular surgery discussed his care with his PCP through [facility] total care time today - 90 minutes Admission and Anticipated Discharge Date Admission Date: July 05, 2023 Subjective significant care coordination took place before I saw Mr Finley at bedside this am I spoke with Dr Ritter from neurology who provided consultation Dr Ritter recommended outpatient EMGs - [facility] had also recommended such I spoke with Dr Ling from [facility] who will provide consultation to r/o any rheumatic condition contributing to his symptoms we called [facility] MRI and there was no recent MRIs done; most recent MRI brain/c- spine was Feb 2022 (both normal) I obtained his recent office visit note with [facility] they removed a common wart from his thumb he asked derm about his rash over his eyelids -- he told derm he was concerned it was "heliotropic" -- derm was not sure as there was minimal to no ocular findings during that visit derm did send DEBORAH and it returned weakly positive above care coordination took 1-2 hours in duration mid-afternoon I received word from nursing staff that patient was irate that rheumatology had yet to see him since admission he asked to speak to a hospital linux vmware administrator the nursing aluminum boat assembly supervisor was involved and apparently his father called in also upset a short time later I came to his room he initially would not allow me to come into the room stating he would only speak to an linux vmware administrator security was called to de-escalate the situation as he was quite upset Mr Finley ultimately allow me to see him nursing aluminum boat assembly supervisor was present during my visit I explained to him that I had a call out to [facility] and that I would be personally speaking to the on-call provider after his clinic was complete for the day he was not happy that it was a [facility] provider and not [facility] he went into detail that his girlfriend 5-6 years ago at [facility] from [facility] he was borderline tearful talking about this; I got the sense he was not trustful of [facility] because of his girlfriend's experience he ultimately DID allow me to place the consult to [facility] for the next 15 minutes he went over various symptoms and signs and asked various questions; random bruises on his skin, muscle pain in his legs and thighs, asking about MRIs of his thighs, following thru with MRI brain/c-spine as advised by [facility], etc - all discussed during this portion of the visit I did review his dopplers of the legs which showed a chronic clot in the left greater saphenous vein told him Rx was not needed other than doing DVT proph while hospitalized did suggest he tell his surgeon in [place] that he has this superficial clot when he undergoes his rib surgery and the need for lovenox (or other) chemical DVT proph when the visit concluded he seemed satisfied with the plan -- MRI brain, MRI c- spine, rheum consult he asked for nicoderm patch Review of Systems Review of Systems: gen - poor appetite; has mentioned 50 pounds of weight loss pulm - no dyspnea GI - no abd pain musculo - ongoing muscle pain especially in both thighs neuro - generalized weakness; no diplopia today Physical Exam Physical Exam: full exam deferred due to pt's agitation during the visit the following were observed - gen - comfortable throughout the visit; lying in bed neuro - moving all 4 limbs spontaneously including his legs skin - no new rash psych - agitated; jumping/shifting from topic to topic, symptom to symptom; awake, alert Results & Data Results & Data Vital Signs (Past 12 Hours) Vital Signs Temp Pulse Resp BP Pulse Ox O2 Del Method 07/07/23 14:58 37.0 C 60 18 140/92 98 Room Air 07/07/23 07:52 36.8 C 57 L 18 144/88 H 97 Room Air Laboratory Results Laboratory Results 07/06/23 07/07/23 07:59 05:41 WBC 9.14 9.07 RBC 5.27 5.23 Hgb 15.8 15.9 Hct 45.3 44.6 MCV 86.0 85.3 MCH 30.0 30.4 MCHC 34.9 35.7 RDW Std Deviation 39.8 39.8 RDW Coeff of Shar 12.9 13.1 Plt Count 317 322 MPV 8.9 L 9.0 L Immature Gran % (Auto) 0.3 0.2 Neut % (Auto) 67.2 62.3 Lymph % (Auto) 19.6 24.9 Evans % (Auto) 10.1 9.5 Eos % (Auto) 2.0 2.2 Baso % (Auto) 0.8 0.9 Neut # (Auto) 6.15 5.65 Lymph # (Auto) 1.79 2.26 Evans # (Auto) 0.92 H 0.86 H Eos # (Auto) 0.18 0.20 Baso # (Auto) 0.07 0.08 Immature Gran # (Auto) 0.03 0.02 Sodium 138 141 Potassium 3.4 L 3.9 Chloride 104 105 Carbon Dioxide 25 30 Anion Gap 9 6 BUN 7 7 Creatinine 0.91 0.89 Est Cr Clr Drug Dosing 130.5 133.4 Est GFR ( Amer) 125.2 127.5 Est GFR (Non-Af Amer) 108.0 110.0 BUN/Creatinine Ratio 7.7 L 7.9 L Glucose 102 H 114 H Calcium 9.5 9.5 Magnesium 2.2 Total Bilirubin 1.3 H AST 27 ALT 37 Alkaline Phosphatase 81 Total Protein 7.1 Albumin 4.6 Globulin 2.5 Albumin/Globulin Ratio 1.8 TSH 0.998 Free T4 1.13 Cortisol AM Sample 14.47 Monoscreen Negative Diagnostic Findings Exam(s): US VENOUS BILATERAL LOWER EXTREMITIES EXAM: US Duplex Bilateral Lower Extremities Veins CLINICAL HISTORY: Reason for exam: bilateral calf pain, sedentary lifestyle. TECHNIQUE: Real-time duplex ultrasound scan of the bilateral lower extremity veins integrating B-mode two-dimensional vascular structure, Doppler spectral analysis, color flow Doppler imaging and compression. COMPARISON: No relevant prior studies available. FINDINGS: Right deep veins: Unremarkable. No DVT in the right lower extremity. Right superficial veins: Unremarkable. No thrombus in the visualized right great saphenous vein. Left deep veins: Unremarkable. No DVT in the left common femoral, femoral, proximal deep femoral or popliteal veins. The veins demonstrate normal color flow, are normally compressible, with normal phasic flow and/or augmentation response. Left superficial veins: Left large saphenous vein is partially compressible with thick-walled likely representing chronic nonocclusive thrombus within same. Soft tissues: No acute findings. No popliteal cyst. IMPRESSION: 1. No DVT 2. Chronic nonocclusive thrombus within the left large saphenous vein Electronically signed by: Wale Zazueta MD 07/06/23 20:42 PM Dictated: 07/06/232041 Transcribed: 07/06/232041 PG Care Time/CCT Total # of Minutes Spent Total Time Spent with Patient: Total time spent is greater than 50% in coordination of care (as documented) at patient's floor/unit and/or counseling patient: Prolonged Care Time Prolonged Care Time: Yes Total Prolonged Care Time: 90 Coding Level of Care Code 09588 SUB INP/OBS CARE 3/50MIN (25 - SIGNIFICANT, SEPARATELY IDENTIFIABLE ) Diagnoses Myalgia M79.10 Weakness R53.1 Positive DEBORAH (antinuclear antibody) R76.8 Fibromyalgia M79.7 Slipping rib syndrome M94.0 Medical cannabis use Z79.899 Swallowing difficulty R13.10 ADHD F90.9 Chronic superficial venous thrombosis of left lower extremity I82.812 Tobacco use Z72.0 Vitamin D insufficiency E55.9 DVT prophylaxis Z29.9 Orlando-Danlos syndrome Q79.60 Weight loss R63.4 Additional Codes Prolonged Care Time - Prolonged Care Time: Yes ([id number])
[2023-07-07] MEDS: NICOTINE 14 MG/24 HR PATCH TD SCH (18:30)
[2023-07-07] MEDS: ENOXAPARIN INJ 40 MG/0.4 ML SYR SQ SCH (20:25)
[2023-07-07] MEDS: LORazepam 0.5 MG TAB PO PRN (20:25)
[2023-07-07] MEDS: KETOROLAC 30 MG/ML VIAL IV PRN (21:29)
[2023-07-07] MEDS ORDERED: GADOBUTROL 65ML VIAL IV ONE (23:15)
--- NOTE | 2023-07-07 23:43 | Magnetic Resonance Report ---
Exam(s): MRI HEAD W/WO Contrast IV Amt: 8.5mL Gadavist given IV EXAM: MR Head Without and With Intravenous Contrast CLINICAL HISTORY: Reason for exam: b/l leg weakness. TECHNIQUE: Magnetic resonance images of the head/brain without and with intravenous contrast in multiple planes. CONTRAST: Patient received 8.5mL Gadavist given IV of IV contrast COMPARISON: No relevant prior studies available. FINDINGS: Brain: Unremarkable. No mass. No hemorrhage. No acute infarct. Ventricles: Unremarkable. No ventriculomegaly. Bones/joints: Unremarkable. No acute fracture. Sinuses: Unremarkable as visualized. No acute sinusitis. Mastoid air cells: Unremarkable as visualized. No mastoid effusion. Orbits: Unremarkable as visualized. IMPRESSION: Normal head/brain MRI. Electronically signed by: Salvador Butterfield M.D. 07/07/23 23:41 PM
--- NOTE | 2023-07-08 00:11 | Magnetic Resonance Report ---
Exam(s): MRI C SPINE IV Amt: 8.5mL Gadavist given IV EXAM: MR Cervical Spine With Intravenous Contrast CLINICAL HISTORY: Reason for exam: b/l leg weakness. TECHNIQUE: Magnetic resonance images of the cervical spine with intravenous contrast in multiple planes. CONTRAST: Patient received 8.5mL Gadavist given IV of IV contrast COMPARISON: No relevant prior studies available. FINDINGS: Vertebrae: Unremarkable. No acute fracture. Spinal cord: Unremarkable. Normal signal. No abnormal enhancement. Soft tissues: Unremarkable. DISCS/SPINAL CANAL/NEURAL FORAMINA: C2-C3: Unremarkable. No significant disc disease. No stenosis. C3-C4: Unremarkable. No significant disc disease. No stenosis. C4-C5: Unremarkable. No significant disc disease. No stenosis. C5-C6: Unremarkable. No significant disc disease. No stenosis. C6-C7: Unremarkable. No significant disc disease. No stenosis. C7-T1: Unremarkable. No significant disc disease. No stenosis. IMPRESSION: Normal cervical spine MRI. Electronically signed by: Salvador Butterfield M.D. 07/08/23 00:09 AM
[2023-07-08] MEDS: GABAPENTIN 100 MG CAP PO SCH (07:30)
[2023-07-08] MEDS: LORazepam 0.5 MG TAB PO PRN ×2 (07:30→16:51)
[2023-07-08] MEDS: KETOROLAC 30 MG/ML VIAL IV PRN ×2 (07:31→16:51)
[2023-07-08] MEDS: CHOLECALCIFEROL 5,000 UNITS 125 MCG TAB PO SCH (07:31)
[2023-07-08] MEDS: NICOTINE 14 MG/24 HR PATCH TD SCH (07:32)
[2023-07-08] MEDS: ENOXAPARIN INJ 40 MG/0.4 ML SYR SQ SCH (07:34)
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
--- NOTE | 2023-07-08 10:43 | Neurology Progress Note ---
Date of Service July 08, 2023 Assessment & Plan (1) Weakness: (2) Fatigue: (3) Weight loss: (4) Swallowing difficulty: (5) Diplopia: Plan This patient has a number of symptoms including generalized weakness fatigue and easy fatigability with intermittent trouble swallowing, double vision, weight loss, mildly positive DEBORAH, and recent "heliotrope" rash. His weakness pattern by history is proximal but currently he has no actual focal deficits or pathologic weakness. He has no sensory deficits, ataxia, or gait disturbance. I find no cranial nerve issues. Therefore he has no focal deficits, meningeal signs, or encephalopathy Cannot entirely exclude an immunologic condition but I have not seen dermatomyositis (ever) with a completely normal CK and sed rate. Otherwise, he seems neurologically intact Recommendations: 1. Aldolase is pending. Certain immunological studies are pending, as well as EBV titers. 2. Consider ordering parvovirus titers, DEBORAH profile 12, and acetylcholine receptor antibody titers including binding, modulating, and blocking. 3. Consider EMG nerve conduction studies of 1 arm and leg as an outpatient (I cannot do the study as an inpatient). 4. If the EMG is positive for myopathy, I may consider muscle biopsy as an outpatient. 5. If his neuropathic pain is worse, I would increase gabapentin to 300 mg 3 times a day. Overall, I spent a total of 50 minutes with this case including review of records, direct evaluation the patient at bedside, report generation, and discussion of the case with the patient at bedside, RN at bedside, and Dr. Rolon, including differential diagnosis and treatment options. Admission and Anticipated Discharge Date Admission Date: July 05, 2023 Subjective The patient is complaining of some left lateral thigh bruise which she feels is new. He is concerned that he may have Sjogren's disease. MRI of the brain with and without contrast was unremarkable. MRI of the cervical spine with and without contrast was unremarkable. I reviewed these films and relayed this to the patient. TSH, liver profile and CHEM profile were unremarkable. There are many immunologic labs pending. Results & Data Vital Signs (Past 12 Hours) Vital Signs Temp Pulse Resp BP Pulse Ox O2 Del Method 07/08/23 07:40 36.7 C 77 16 158/95 H 100 Room Air Exam (Neuro) Physical Exam: He is awake and alert. Speech is without aphasia or dysarthria. Mood and affect seem normal and appropriate. Thought processes are intact to conversation. He does jump around with ideas and medical issues but he is not displaying any psychosis. Coordination seems normal in the arms. Stance sitting up in bed is reasonable. Strength seems symmetrical in the limbs. PG Care Time/CCT Total # of Minutes Spent Total Time Spent with Patient: Total time spent is greater than 50% in coordination of care (as documented) at patient's floor/unit and/or counseling patient: Coding Level of Care Code 57456 SUB INP/OBS CARE 3/50MIN Diagnoses Weakness R53.1 Fatigue R53.83 Weight loss R63.4 Swallowing difficulty R13.10 Diplopia H53.2
[2023-07-08 16:44] LABS: Albumin Globulin Ratio 2.2 (0.9-2); Albumin Level 4.8 gm/dl (3.4-5.0); BUN Creatinine Ratio 9.8 (10-20); Bilirubin,Total 1.3 mg/dl (0.2-1.0); Calcium 9.7 mg/dl (8.6-10.3); Creatinine Clr Calc Pharmacy 129.1 ml/min; Est GFR (African American) 123.6 ml/min; Est GFR (Non-African American) 106.6 ml/min; Globulin 2.2 gm/dl (2.5-4.0); Potassium 3.6 mmol/L (3.5-5.1)
--- NOTE | 2023-07-08 18:20 | Discharge Summary ---
Date of Service July 08, 2023 Admission HPI Per Admitting Provider Patient is a 38-year-old male who comes into the hospital complaining of muscle weakness in the arms, legs, neck, and throat. States that he has been having this weakness for the past few years and has seen rheumatology as well as recently seen neurology for this issue. States that over the past week his symptoms have been getting worse. States that his legs and arms are very weak. He has also been choking on things for the past couple of days when he has not had this issue before. States that he was trying to put up a camera and he started to have trouble with lifting his arms up over his head this afternoon. He reached out to his neurologist who said to come to the ED. Patient also states that when he was trying to shower and he tried to stand on 1 leg he started to fall over. States that he has been having trouble with walking. He also states that he has been feeling nauseous but has no vomiting. Denies any chest pain, abdominal pain, or other symptoms. Principal Diagnosis weakness Discharge Exam PHYSICAL EXAMINATION Last 24h vital signs reviewed, see documentation in flowsheet General: comfortable appearing, no distress HEENT: Normocephalic, atraumatic, pupils round and equal, sclerae anicteric, no conjunctival injection, moist mucus membranes Lungs: Normal respiratory effort. Chest: demonstrated his 'slipped rib' right lower chest wall - compresses inward easily Abdomen: nondistended. Extremities: Warm, dry, well-perfused. No extremity edema. L leg with long well healed incision lateral thigh. No edema erythema or cord along saphenous vein Neuro: Alert and oriented x 4, face symmetric, moves 4 extremities well. Observed to walk back and forth to bathroom, uses walker but moving well Psych: Normal affect and behavior Discharge Data Allergies Allergy/AdvReac Type Severity Reaction Status Date / Time Pork/Porcine Containing AdvReac Verified 07/06/23 11:25 Products shellfish derived AdvReac Verified 07/06/23 11:25 Consultations 07/05/23 01:18 ED Decision to Admit Stat 07/07/23 08:15 Consult Neurology Routine 07/07/23 18:53 Consult Rheumatology Routine Ordered Studies 07/04/23 21:25 CT head/brain wo con Stat 07/06/23 18:45 US venous doppler LE BI Stat 07/07/23 17:37 MR cervical spine wo/w con Routine MRI Brain [MR brain wo/w con] Routine Chest X-Ray 07/04/23 20:11 XR chest 1V portable HISTORY: weakness COMPARISON: Chest 05/27/2023. FINDINGS: The lungs are clear. Cardiac silhouette is normal in size. No pleural effusions. No pneumothorax. IMPRESSION: No acute process. ACT 112: Negative or not required by law. Electronically signed by: Manan Goldman M.D. 07/05/2023 8:[address] 07/04/23 21:25 Exam(s): CT HEAD Without Contrast EXAM: CT Head Without Intravenous Contrast CLINICAL HISTORY: Reason for exam: weakness, fatigue. TECHNIQUE: Axial computed tomography images of the head/brain without intravenous contrast. CTDI is 37.22 mGy and DLP is 702.46 mGy-cm. Automated exposure control was utilized for the study. A dose lowering technique was utilized adhering to the principles of ALARA. COMPARISON: No relevant prior studies available. FINDINGS: Brain: Unremarkable. No hemorrhage. No significant white matter disease. No edema. Ventricles: Unremarkable. No ventriculomegaly. Bones/joints: Unremarkable. No acute fracture. Soft tissues: Unremarkable. Sinuses: Unremarkable as visualized. No acute sinusitis. Mastoid air cells: Unremarkable as visualized. No mastoid effusion. IMPRESSION: No evidence of acute intracranial pathology. Electronically signed by: Geeta Carvajal MD 07/05/23 00:58 AM Venous Doppler Study 07/06/23 18:45 Exam(s): US VENOUS BILATERAL LOWER EXTREMITIES EXAM: US Duplex Bilateral Lower Extremities Veins CLINICAL HISTORY: Reason for exam: bilateral calf pain, sedentary lifestyle. TECHNIQUE: Real-time duplex ultrasound scan of the bilateral lower extremity veins integrating B-mode two-dimensional vascular structure, Doppler spectral analysis, color flow Doppler imaging and compression. COMPARISON: No relevant prior studies available. FINDINGS: Right deep veins: Unremarkable. No DVT in the right lower extremity. Right superficial veins: Unremarkable. No thrombus in the visualized right great saphenous vein. Left deep veins: Unremarkable. No DVT in the left common femoral, femoral, proximal deep femoral or popliteal veins. The veins demonstrate normal color flow, are normally compressible, with normal phasic flow and/or augmentation response. Left superficial veins: Left large saphenous vein is partially compressible with thick-walled likely representing chronic nonocclusive thrombus within same. Soft tissues: No acute findings. No popliteal cyst. IMPRESSION: 1. No DVT 2. Chronic nonocclusive thrombus within the left large saphenous vein Electronically signed by: Wale Zazueta MD 07/06/23 20:42 PM Brain MRI 07/07/23 17:37 Exam(s): MRI HEAD W/WO Contrast IV Amt: 8.5mL Gadavist given IV EXAM: MR Head Without and With Intravenous Contrast CLINICAL HISTORY: Reason for exam: b/l leg weakness. TECHNIQUE: Magnetic resonance images of the head/brain without and with intravenous contrast in multiple planes. CONTRAST: Patient received 8.5mL Gadavist given IV of IV contrast COMPARISON: No relevant prior studies available. FINDINGS: Brain: Unremarkable. No mass. No hemorrhage. No acute infarct. Ventricles: Unremarkable. No ventriculomegaly. Bones/joints: Unremarkable. No acute fracture. Sinuses: Unremarkable as visualized. No acute sinusitis. Mastoid air cells: Unremarkable as visualized. No mastoid effusion. Orbits: Unremarkable as visualized. IMPRESSION: Normal head/brain MRI. Electronically signed by: Salvador Butterfield M.D. 07/07/23 23:41 PM Cervical Spine MRI 07/07/23 17:37 Exam(s): MRI C SPINE IV Amt: 8.5mL Gadavist given IV EXAM: MR Cervical Spine With Intravenous Contrast CLINICAL HISTORY: Reason for exam: b/l leg weakness. TECHNIQUE: Magnetic resonance images of the cervical spine with intravenous contrast in multiple planes. CONTRAST: Patient received 8.5mL Gadavist given IV of IV contrast COMPARISON: No relevant prior studies available. FINDINGS: Vertebrae: Unremarkable. No acute fracture. Spinal cord: Unremarkable. Normal signal. No abnormal enhancement. Soft tissues: Unremarkable. DISCS/SPINAL CANAL/NEURAL FORAMINA: C2-C3: Unremarkable. No significant disc disease. No stenosis. C3-C4: Unremarkable. No significant disc disease. No stenosis. C4-C5: Unremarkable. No significant disc disease. No stenosis. C5-C6: Unremarkable. No significant disc disease. No stenosis. C6-C7: Unremarkable. No significant disc disease. No stenosis. C7-T1: Unremarkable. No significant disc disease. No stenosis. IMPRESSION: Normal cervical spine MRI. Electronically signed by: Salvador Butterfield M.D. 07/08/23 00:09 AM 07/07/23 05:41 07/08/23 12:01 Hospital Course (1) Myalgia: Pt reports generalized weakness, myalgia/pain in his muscles but particularly the thighs, as well as a host of other symptoms. EXTENSIVE work-up has been pursued in the past by various providers. There is a note from [facility] from 09/21/2021 summarizing his chronic complaints. This note is scanned into the record. Recent work-up -- * 06/25/23 - saw [facility], MRI brain/c-spine advised; myositis w/u advised; amyloidosis w/u advised - their note states they gave him an Invitae buccal swab to rule this out; also advised neuropathy panel to evaluate for TTR gene; there are numerous labs pending from that visit -- need to f/u on all of that (I believe there are myasthenia gravis labs pending from that visit as well) * saw [place] [facility] - he mentioned the ?heliotropic rash on eyelids - DEBORAH panel sent which prelim was positive as below Brain MRI and cspine MRI were completed this admission and were normal. Fill Manager consulted - discussed with Dr. Ling. He has a low-titer positive DEBORAH with is nonspecific. He did not think he had dermatomyositis or inflammatory myopathy or other findings concerning for rheumatologic disease. I offered referral to [facility] [place] up but he prefers to seek care in [facility]. Neurologist consulted - discussed with Dr. Ritter. His recommendations: "Recommendations: 1. Aldolase is pending. Certain immunological studies are pending, as well as EBV titers. 2. Consider ordering parvovirus titers, DEBORAH profile 12, and acetylcholine receptor antibody titers including binding, modulating, and blocking. [I ordered these today, pending] 3. Consider EMG nerve conduction studies of 1 arm and leg as an outpatient (I cannot do the study as an inpatient). 4. If the EMG is positive for myopathy, I may consider muscle biopsy as an outpatient. 5. If his neuropathic pain is worse, I would increase gabapentin to 300 mg 3 times a day." TSH, free T4, ESR, CRP, CK were normal Labs pending here - * total testosterone * paraneoplastic panel (send due to c/o 50+ pounds of weight loss) * DEBORAH extended panel * EBV/CMV and parvovirus titers * aldolase * Acetylcholine receptor antibodies * ACTH (cortisol was 14) Unclear cause of his symptoms, however, it is safe to continue testing and follow up in the outpatient setting at this time. (2) Weakness: See above and below for further discussion He reports weakness and b/l foot drop but the latter is not seen on exam He has no evidence of clinical myopathy or prox muscle weakness on exam MRI brain and C-spine were normal PT/OT evals - - OT recommend discharge to home to stay with parents and a walker to decrease risk of falls - PT recommends discharge to home with parents, or use a walker and elevator at current apartment - he is going to his [facility] in [place] tomorrow for extended stay. he declined Rx for walker since he has one at [facility] and prefers to use cane in meantime. I observed him ambulating and I do not think there is significant fall risk. Appreciate neuro consult by Dr Ritter Appreciate upcoming rheum consult by Dr Ling (3) Positive DEBORAH (antinuclear antibody): Has been positive in the past, and recent DEBORAH thru the [employer] system on 07/01/23 was also positive. titer - 1:160, speckled pattern additional labs sent by [facility] on 06/25/23 - pyridoxal 5 phosphate level (Vit B6) - 42.6 (normal); vitamin B1 level 138; vitamin B12 443 "musk ab" - also sent on 06/25/23 - not sure what this lab encompasses of note - DEBORAH-12 sent from [facility] and is pending -he will continue his B vitamin supplement (4) Fibromyalgia: Was dx previously by Rheumatology in 2021 patient disagrees with this diagnosis Trialed duloxetine previously and stopped the med due to side effects TSH, FT4 wnl Cortisol level wnl CPK wnl Sed rate <10 CRP 0 Lyme negative Monospot negative; EBV/CMV titers pending DEBORAH+ as above (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 07/15/23 at [facility] in [place] Surgery will be on right side He showed me a gabapentin titration schedule as recommended by GLADYS Gallardo, from [place] -- * 3 weeks prior to surgery - gabapentin 100mg BID * 2 weeks prior to surgery - gabapentin 200mg BID * 1 week prior to surgery - gabapentin 300mg BID * 2 days before surgery - gabapentin 600mg BID his dose was increased to 200mg BID while here (6) Medical cannabis use: noted (7) Swallowing difficulty: Patient reported Evaluated by speech therapy --> no acute concerns, passed swallow study (8) ADHD: Patient reports not taking Adderall frequently (9) Chronic superficial venous thrombosis of left lower extremity: greater saphenous vein on left chronic in appearance non-occlusive, asymptomatic and not apparent on exam risk factor for such -- 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 as well no acute Rx needed given chronicity should always be on chemical DVT proph while hospitalized, eliecer-operatively, etc fortunately no DVT seen in either leg (10) Tobacco use: (11) Vitamin D insufficiency: level - 25 doubt contributing to his overall symptoms recommended vit D supplement daily (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 AST/ALT albumin are normal. No evidence of liver disease. Possibly Gilbert's syndrome. Further workup if significant elevation develops (ie >=2.0 or other associated findings). My colleague discussed his care with his PCP through [facility] 07/07. Total Time Total Time Spent Total Time Spent (In Minutes): I personally spent: 45 minutes today on clinical care activities for discharge including: reviewing chart notes and vital signs reviewing labs discussion with senior internet sales consultant(s) - eye glass frame polisher and neurologist discussion with RN examining and counseling the patient writing orders documentation Discharge Plan Discharge Items Patient Disposition: Home - Self-Care Reason For Visit: WEAKNESS Discharge Diagnosis: weakness Condition on Discharge: Fair Activity: Resume your previous activity Activity Comment: use cane or walker to assist with mobility Non-emergency contact: Primary Care Provider and Neurologist Call non-emergency contact if: you have any medication questions and your symptoms worsen Follow-up/Referrals: Nikko Ritter MD [Physician] - (Office will reach out to schedule) Jm Starr DO [Primary Care Provider] - Diet: Regular Addtl Attending Provider Instructions: You were evaluated for weakness. We did not identify a specific diagnosis. Brain MRI and c-spine MRI were normal which is reassuring. You were evaluated by a neurologist and eye glass frame polisher. The eye glass frame polisher did not find evidence of a rheumatologic disorder. You have a low-positive DEBORAH however that finding is very nonspecific. The neurologist recommend follow up in the office for EMG testing to further evaluate weakness. There are a large number of labs pending at [facility] and also with [facility] to evaluate for unusual conditions. Since you are staying outside the area for awhile, the patient portal will be helpful for following these up. These include: aldolase, acetylcholine receptor antibodies - blood tests that can be abnormal in myopathy extended DEBORAH panel - checks for various autoantibodies parvovirus EBV and CMV antibody testing - viral infections that can cause unusual symptoms and fatigue testosterone level ACTH level - related to adrenal function. Your cortisol levels were normal Paraneoplastic panel - autoantibodies that can be related to cancers TSH and free T4 thyroid levels were normal CK, ESR and CRP were normal Blood counts, liver, kidney, electrolyte panels were unremarkable Your B12 level was lower end of normal range at [facility] - probably a good idea to keep taking daily B12 supplement Your vitamin D level was slightly low - this was in the asymptomatic range. Since you have orthopedic problems and need surgery it is probably a good idea to take a vitamin D supplement - 1000 to 2000 units a day - you can buy this at the drug store without a prescription. I hope that your upcoming surgery goes well. Pending Studies at Discharge: Yes Stand-Alone Forms: My [facility], Smoking Cessation Medications and DC Order Prescriptions: Continued dextroamphetamine-amphetamine [Adderall] 20 mg tablet 20 mg PO BID PRN (Reason: NEEDED PER PT.) Rx Instructions: PER PT "ONLY TAKE WHEN NEEDED". multivitamin Tablet 1 tab PO DAILY Rx Instructions: PER PT "ON HOLD FOR SURGERY". lorazepam 0.5 mg tablet 0.5 mg PO Q8H PRN (Reason: Anxiety) baclofen 10 mg tablet 10 mg PO TID PRN (Reason: MUSCLE SPASMS) vitamin B complex Tablet 1 tab PO DAILY Rx Instructions: PER PT "ON HOLD FOR SURGERY". gabapentin 100 mg capsule 100 mg PO BID Rx Instructions: PER PT "TAKING TID". albuterol sulfate 90 mcg/actuation HFA aerosol inhaler 2 puff INHALATION Q4H PRN (Reason: Wheezing) Discharge Orders: Discharge Order (Routine); Ordered 07/08/23 Ordered By: Sarah Beth Rolon Admission Data Admit Date/Time: 07/05/23 01:53 Attending Provider: Sarah Beth Rolon Admit Provider: Ollie Funes Primary Care Provider: Jm Starr Other Providers: Gwen Rg; Nikko Ritter; Quincy Ling Other Interventions: Discharge Summary Assessment (RN) Last Done: 07/08/23 16:57 Coding Level of Care Code 28821 INP/OBS DISCH >30 MIN Diagnoses Myalgia M79.10 Weakness R53.1 Positive DEBORAH (antinuclear antibody) R76.8 Fibromyalgia M79.7 Slipping rib syndrome M94.0 Medical cannabis use Z79.899 Swallowing difficulty R13.10 ADHD F90.9 Chronic superficial venous thrombosis of left lower extremity I82.812 Tobacco use Z72.0 Vitamin D insufficiency E55.9 Orlando-Danlos syndrome Q79.60 Weight loss R63.4
[2023-07-10 14:12] LABS: CMV IgG Antibody <0.60 U/mL; CMV IgM Antibody <30.00 AU/mL; Testosterone Total 619 ng/dL (250-1100)
== END 2023-07-08 17:40 | disposition home or self-care (01) | DRG 556 ==
LOC: ED 20:02 → SUATTDRO 07-05 01:53 → 3E 07-05 01:53